=== PATIENT | female | born 1940 | race African-American/Black ===

== ENCOUNTER 2019-07-24 18:41 | Inpatient (IN) | payer OTHER ==
[~2019-07-24] VITALS: Ht 167.6 cm; Wt 69.4 kg
[2019-07-24] MEDS ORDERED: SODIUM CHLORIDE 0.9% 1,000 ML IV ONE (19:57)
[2019-07-24] MEDS ORDERED: LIDOCAINE HCL/PF 1% 10 MG/ML 5ML VIAL IJ ONE (21:45)
[2019-07-24 22:40] LABS: BASOPHILS % 0.5 % (0.0-2.0); LYMPHOCYTES % 20.3 % (20.0-50.0); MEAN CORPUSCULAR HEMOGLOBIN 32.1 pg (28.0-32.0); MEAN CORPUSCULAR VOLUME 96.4 fL (81.0-99.0); MEAN PLATELET VOLUME 7.1 fl (7.4-10.4); MONOCYTES % 11.5 % (2.0-8.0); NEUTROPHILS % 67.7 % (40.0-76.0); PLATELET 135 x1000/uL (130-400); RED BLOOD CELL COUNT 3.74 mill/uL (4.2-5.4); RED CELL DISTRIBUTION WIDTH 13.7 % (11.6-14.6)
[2019-07-24 22:49] LABS: CHLORIDE 100 mEq/L (98-107)
[2019-07-24 22:53] LABS: INR 1.1; PROTHROMBIN TIME 11.4 sec (9.6-11.0)
[2019-07-24] MEDS ORDERED: INSULIN REGULAR (HUMULIN R) 300UNITS/3ML IV ONE (23:00)
[2019-07-24] MEDS ORDERED: DEXTROSE 50% WATER 50ML SYRINGE IV ONE (23:00)
[2019-07-25] VITALS (9 sets, daily range): BP systolic 123–177; BP diastolic 77–106
[2019-07-25] MEDS ORDERED: ACETAMINOPHEN 325MG TABLET PO PRN (05:00)
[2019-07-25] MEDS: SODIUM CHLORIDE 0.9% INJ 3ML FLUSH IVF SCH ×3 (05:30→21:30)
[2019-07-25] MEDS: CLONIDINE 0.1MG TABLET PO PRN (05:31)
[2019-07-25] MEDS ORDERED: DEXTROSE 50% WATER 50ML SYRINGE IV PRN (06:15)
[2019-07-25] MEDS: BLOOD SUGAR DIAGNOSTIC STRIP TEST SCH ×3 (06:38→17:20)
[2019-07-25] MEDS: INSULIN LISPRO 100 UNITS/ML SUBCUT SCH ×3 (07:41→17:32)
[2019-07-25] MEDS ORDERED: AMLODIPINE 10MG TABLET PO SCH (09:00)
[2019-07-25] MEDS: ENOXAPARIN 30MG/0.3ML SYR SUBCUT SCH (09:15)
[2019-07-25 10:53] LABS: BASOPHILS % 0.4 % (0.0-2.0); HEMATOCRIT. 33.2 % (36.0-48.0); HEMOGLOBIN. 10.8 g/dL (12.0-16.0); LYMPHOCYTES % 29.6 % (20.0-50.0); MEAN CORPUSCULAR HEMOGLOBIN 31.5 pg (28.0-32.0); MEAN CORPUSCULAR VOLUME 96.6 fL (81.0-99.0); MEAN PLATELET VOLUME 7.3 fl (7.4-10.4); PLATELET 129 x1000/uL (130-400); RED BLOOD CELL COUNT 3.44 mill/uL (4.2-5.4); RED CELL DISTRIBUTION WIDTH 13.9 % (11.6-14.6)
[2019-07-25] MEDS ORDERED: SODIUM POLYSTYRENE SULFONATE 15 G/60 ML BOT PO SCH (11:45)
[2019-07-25 13:22] LABS: PHOSPHORUS 3.5 mg/dL (2.5-4.9)
[2019-07-25] MEDS: LEVOTHYROXINE SODIUM 75MCG TABLET PO SCH (13:24)
[2019-07-25 17:01] LABS: CHLORIDE 101 mEq/L (98-107)
[2019-07-25] MEDS: TRAMADOL 50MG TABLET PO PRN (17:45)
[2019-07-25] MEDS ORDERED: ATORVASTATIN CALCIUM 20MG TABLET PO SCH (21:00)
[2019-07-25] MEDS ORDERED: HYDROCODONE/ACETAMINOPHEN 5/325MG TABLET PO PRN (21:15)
[2019-07-26 00:10] VITALS: BP 129/81
[2019-07-26 04:00] VITALS: BP 157/97
[2019-07-26] MEDS: SODIUM CHLORIDE 0.9% INJ 3ML FLUSH IVF SCH ×2 (06:02→14:00)
[2019-07-26] MEDS: LEVOTHYROXINE SODIUM 75MCG TABLET PO SCH (06:25)
[2019-07-26 08:00] VITALS: BP 152/96
[2019-07-26 08:28] LABS: BASOPHILS % 0.5 % (0.0-2.0); HEMOGLOBIN. 12.1 g/dL (12.0-16.0); MEAN CORPUSCULAR HEMOGLOBIN 31.6 pg (28.0-32.0); MEAN PLATELET VOLUME 7.5 fl (7.4-10.4); MONOCYTES % 8.6 % (2.0-8.0); NEUTROPHILS % 54.9 % (40.0-76.0); PLATELET 164 x1000/uL (130-400); RED BLOOD CELL COUNT 3.81 mill/uL (4.2-5.4); RED CELL DISTRIBUTION WIDTH 13.5 % (11.6-14.6)
[2019-07-26] MEDS: ENOXAPARIN 30MG/0.3ML SYR SUBCUT SCH (08:39)
[2019-07-26] MEDS: TRAMADOL 50MG TABLET PO PRN ×2 (08:50→10:15)
[2019-07-26] MEDS ORDERED: FOLIC ACID/VITAMIN B COMP W-C TABLET PO SCH (09:00)
[2019-07-26] MEDS ORDERED: NIFEDIPINE XL 60MG TAB PO SCH (09:00)
[2019-07-26 12:00] VITALS: BP 153/90
[2019-07-26 14:00] VITALS: BP 152/96
[2019-07-26] MEDS ORDERED: SODIUM POLYSTYRENE SULFONATE 15 G/60 ML BOT PO ONE (14:45)
[2019-07-26 16:00] VITALS: BP 152/96
[2019-07-26] MEDS ORDERED: SODIUM POLYSTYRENE SULFONATE 15 G/60 ML BOT PO SCH (16:00)
[2019-07-26] MEDS: CLONIDINE 0.1MG TABLET PO PRN (16:11)
== END 2019-07-26 17:00 | disposition left against medical advice (07) | DRG 73 ==
LOC: ER 18:41 → 6WST 22:53 → EDBEDREQ 23:02 → EDBEDREQTM 23:02 → ENRESERV 07-25 02:03
PROVIDERS: ADMIT Ophthalmology; ATTEND Ophthalmology
PROC: 0HQ1XZZ Repair Face Skin, External Approach (ICD-10-PCS; 2019-07-24)
PROC: 5A1D70Z Performance of Urinary Filtration, Intermittent, Less than 6 Hours Per Day (ICD-10-PCS; principal; 2019-07-26)
DX: G90.8 Other disorders of autonomic nervous system (principal); N18.6 End stage renal disease; I12.0 Hypertensive chronic kidney disease with stage 5 chronic kidney disease or end stage renal disease; E03.9 Hypothyroidism, unspecified; E87.5 Hyperkalemia; G89.29 Other chronic pain; I99.8 Other disorder of circulatory system; M13.0 Polyarthritis, unspecified; E21.3 Hyperparathyroidism, unspecified; K21.9 Gastro-esophageal reflux disease without esophagitis; S01.111A Laceration without foreign body of right eyelid and periocular area, initial encounter; W18.39XA Other fall on same level, initial encounter; Y93.89 Activity, other specified; Y92.89 Other specified places as the place of occurrence of the external cause; Y99.8 Other external cause status; Z79.82 Long term (current) use of aspirin; Z82.49 Family history of ischemic heart disease and other diseases of the circulatory system; Z99.2 Dependence on renal dialysis
CPT/HCPCS: 36415; 71045; 73560; 73700; 80048; 80053; 80061; 82962; 84100; 84443; 84484; 85025; 93005; 96361; 96374; 96375; 99285; J1650; J1815; J3490; J7030

== ENCOUNTER 2020-03-09 15:40 | Emergency (ER) | payer OTHER ==
[~2020-03-09] VITALS: Ht 167.6 cm; Wt 70.0 kg
[2020-03-09] MEDS ORDERED: ONDANSETRON HCL 4MG/2ML INJ IV STA (15:52)
[2020-03-09 16:36] LABS: BASOPHILS % 0.5 % (0.0-2.0); HEMATOCRIT. 34.3 % (36.0-48.0); HEMOGLOBIN. 11.6 g/dL (12.0-16.0); LYMPHOCYTES % 24.3 % (20.0-50.0); MEAN CORPUSCULAR HEMOGLOBIN 32.3 pg (28.0-32.0); MEAN CORPUSCULAR VOLUME 95.7 fL (81.0-99.0); MEAN PLATELET VOLUME 7.4 fl (7.4-10.4); MONOCYTES % 10.8 % (2.0-8.0); NEUTROPHILS % 64.4 % (40.0-76.0); PLATELET 155 x1000/uL (130-400); RED BLOOD CELL COUNT 3.59 mill/uL (4.2-5.4); RED CELL DISTRIBUTION WIDTH 14.9 % (11.6-14.6)
[2020-03-09 16:51] LABS: CHLORIDE 95 mEq/L (98-107)
[2020-03-09] MEDS ORDERED: FAMOTIDINE 20MG/2ML VIAL IV ONE (17:00)
[2020-03-09 18:25] VITALS: BP 110/69
== END 2020-03-09 18:25 | disposition home or self-care (01) ==
LOC: ER 15:46
DX: R10.9 Unspecified abdominal pain (principal); I12.0 Hypertensive chronic kidney disease with stage 5 chronic kidney disease or end stage renal disease; E11.22 Type 2 diabetes mellitus with diabetic chronic kidney disease; N18.6 End stage renal disease; Z99.2 Dependence on renal dialysis
CPT/HCPCS: 36415; 71045; 74176; 80053; 82962; 83690; 84484; 85025; 93005; 96374; 96375; 99285; J2405; J3490

== ENCOUNTER 2022-03-15 17:11 | Emergency (ER) | payer OTHER ==
[~2022-03-15] VITALS: Ht 172.7 cm; Wt 73.0 kg
[2022-03-15] MEDS ORDERED: MORPHINE SULFATE 4 MG/ML CPJ (NOT FOR IM USE) IV ONE (17:45)
[2022-03-15 18:14] LABS: BASOPHILS % 0.7 % (0.0-2.0); HEMATOCRIT. 34.5 % (36.0-48.0); HEMOGLOBIN. 11.9 g/dL (12.0-16.0); MEAN CORPUSCULAR HEMOGLOBIN 32.8 pg (28.0-32.0); MEAN PLATELET VOLUME 7.3 fl (7.4-10.4); NEUTROPHILS % 59.3 % (40.0-76.0); PLATELET 160 x1000/uL (130-400); RED BLOOD CELL COUNT 3.63 mill/uL (4.2-5.4); RED CELL DISTRIBUTION WIDTH 14.5 % (11.6-14.6)
[2022-03-15 18:22] LABS: CHLORIDE 97 mEq/L (98-107)
[2022-03-15 18:29] LABS: INR 1.2; PROTHROMBIN TIME 12.3 sec (9.6-11.0)
[2022-03-15 22:20] VITALS: BP 112/76
== END 2022-03-15 23:24 | disposition home or self-care (01) ==
LOC: ER 17:11
DX: M79.621 Pain in right upper arm (principal); I12.0 Hypertensive chronic kidney disease with stage 5 chronic kidney disease or end stage renal disease; E11.22 Type 2 diabetes mellitus with diabetic chronic kidney disease; N18.6 End stage renal disease; Z99.2 Dependence on renal dialysis; E78.00 Pure hypercholesterolemia, unspecified
CPT/HCPCS: 36415; 80053; 85025; 93971; 99284

== ENCOUNTER 2024-10-04 06:13 | Emergency (ER) | payer OTHER ==
[~2024-10-04] VITALS: Ht 165.1 cm; Wt 91.0 kg
[2024-10-04 06:19] VITALS: O2SAT 99
[2024-10-04 07:37] LABS: BASOPHILS % 0.5 % (0.0-2.0); HEMATOCRIT. 27.5 % (36.0-48.0); HEMOGLOBIN. 8.7 g/dL (12.0-16.0); LYMPHOCYTES % 16.6 % (20.0-50.0); MEAN CORPUSCULAR HEMOGLOBIN 30.5 pg (28.0-32.0); MEAN CORPUSCULAR HGB CONC 31.8 g/dL (31.0-37.0); MEAN CORPUSCULAR VOLUME 96.1 fL (81.0-99.0); MEAN PLATELET VOLUME 7.1 fl (7.4-10.4); MONOCYTES % 6.1 % (2.0-8.0); NEUTROPHILS % 76.8 % (40.0-76.0); PLATELET 119 x1000/uL (130-400); RED BLOOD CELL COUNT 2.86 mill/uL (4.2-5.4); RED CELL DISTRIBUTION WIDTH 20.1 % (11.6-14.6); WHITE BLOOD COUNT 8.8 x1000/uL (4.5-11.0)
[2024-10-04 07:48] LABS: CARBON DIOXIDE 30 mEq/L (21-32); CHLORIDE 100 mEq/L (98-107); POTASSIUM 3.5 mEq/L (3.5-5.1); SODIUM 139 mEq/L (136-145)
[2024-10-04 07:49] LABS: CALCIUM 8.3 mg/dL (8.7-10.4)
[2024-10-04 07:54] LABS: GLUCOSE 102 mg/dL (70-105); TROPONIN I HIGH SENSITIVITY 22 ng/L (3.0-34); UREA NITROGEN BLOOD 36 mg/dL (9-23)
[2024-10-04 07:57] LABS: LACTIC ACID 2.4 mmol/L (0.4-2.0)
[2024-10-04 08:00] LABS: INR 1.3; PROTHROMBIN TIME 13.9 sec (9.6-11.0)
[2024-10-04 08:37] LABS: CREATININE 5.7 mg/dL (0.6-1.0)
[2024-10-04] MEDS: PIPERACILLIN/TAZO 3.375G/50ML 50 ML IV STA (08:57)
[2024-10-04 13:52] VITALS: BP 118/60; PULSE 77; RESP 11; TEMP 36.6; O2SAT 96
[2024-10-04 13:52] LABS: HEPATITIS B SURFACE ANTIGEN NEGATIVE (Negative)
[2024-10-04] MEDS ORDERED: VANCOMYCIN 1GM/200ML PMX (BAXTER) IV SCH (14:00)
[2024-10-04 14:12] LABS: HEPATITIS A AB IGM NEGATIVE (Negative)
[2024-10-04 14:13] LABS: HEPATITIS B CORE AB IGM NEGATIVE (Negative); HEPATITIS C AB NON REACTIVE (Neg) (Negative)
[2024-10-04] MEDS ORDERED: EPOETIN ALFA-EPBX 4,000 UNIT/ML VIAL SUBCUT NR (21:00)
[2024-10-05] MEDS ORDERED: EPOETIN ALFA-EPBX 4,000 UNIT/ML VIAL SUBCUT SCH (21:00)
== END 2024-10-04 14:15 | disposition short-term general hospital (02) ==
LOC: ER 06:13
DX: T82.838A Hemorrhage due to vascular prosthetic devices, implants and grafts, initial encounter (principal); D64.9 Anemia, unspecified; J90 Pleural effusion, not elsewhere classified; I12.0 Hypertensive chronic kidney disease with stage 5 chronic kidney disease or end stage renal disease; N18.6 End stage renal disease; E78.00 Pure hypercholesterolemia, unspecified; E03.9 Hypothyroidism, unspecified; E11.22 Type 2 diabetes mellitus with diabetic chronic kidney disease; Z86.73 Personal history of transient ischemic attack (TIA), and cerebral infarction without residual deficits; Z99.2 Dependence on renal dialysis; X58.XXXA Exposure to other specified factors, initial encounter
CPT/HCPCS: 99285; 96365; 71045; 80048; 83605; 85025; 85610; 87340; 87040; 84484; 36415; 86709; 93005; 86705; J2543; A4606